=== PATIENT | female | born 1970 | race Caucasian/White ===

== ENCOUNTER 2018-11-12 06:32 | Day surgery (SDC) | payer OTHER ==
[2018-11-12] MEDS ORDERED: GLYCOPYRROLATE 0.4 MG INJ (07:00)
[2018-11-12] MEDS ORDERED: DESFLURANE 15 MIN (07:00)
[2018-11-12] MEDS ORDERED: CEFAZOLIN 2 GM/50 ML (PMX) 50 ML IVPB (07:00)
[2018-11-12] MEDS: SOD CHLORIDE 0.9% 1,000 ML IV (07:45)
[2018-11-12] MEDS ORDERED: hydrALAzine 20 MG INJ IV (09:00)
[2018-11-12] MEDS ORDERED: ALBUTEROL 0.083% (NEB) 2.5 MG/3 ML AMP HHN (09:00)
[2018-11-12] MEDS ORDERED: TRIMETHOBENZAMIDE 100 MG/ML VIAL IM (09:00)
[2018-11-12] MEDS ORDERED: HYDROmorphONE 1 MG/5 ML IV SYRINGE IV (09:00)
[2018-11-12] MEDS ORDERED: OXYCODONE/ACETAMINOPHEN (5/325) TAB PO (09:00)
[2018-11-12] MEDS ORDERED: LABETALOL HCL 20MG INJ IV (09:00)
[2018-11-12] MEDS ORDERED: MIDAZOLAM 1 MG/ML 2 ML INJ IV (09:00)
[2018-11-12] MEDS ORDERED: EPHEDrine SULFATE 50 MG/5 ML SYG IV (09:00)
[2018-11-12] MEDS ORDERED: FENTAnyl 50 MCG/ML VIAL IV ×2 (09:00)
[2018-11-12] MEDS ORDERED: DIPHENHYDRAMINE 50 MG INJ IV (09:00)
[2018-11-12] MEDS ORDERED: IPRATROPIUM (NEB) 0.5 MG/2.5 ML AMP HHN (09:00)
[2018-11-12] MEDS ORDERED: CEFAZOLIN 1 GM INJ (09:12)
[2018-11-12] MEDS ORDERED: NEOSTIGMINE 3 MG/3 ML SYRINGE (09:12)
[2018-11-12] MEDS ORDERED: ROCURONIUM 50 MG INJ (09:12)
[2018-11-12] MEDS ORDERED: PROPOFOL 20 ML (09:12)
[2018-11-12] MEDS ORDERED: MIDAZOLAM 1 MG/ML 2 ML INJ (09:13)
[2018-11-12] MEDS ORDERED: ONDANSETRON 4 MG INJ (09:13)
[2018-11-12] MEDS ORDERED: FENTAnyl 50 MCG/ML VIAL ×2 (09:13→09:36)
[2018-11-12] MEDS ORDERED: ROPIVACAINE 0.5 % 30 ML VIAL (09:19)
[2018-11-12] MEDS ORDERED: DEXAMETHASONE 4 MG/ML 5 ML INJ (09:50)
[2018-11-12] MEDS ORDERED: HYDROCODONE/APAP (5/325) TAB PO (10:00)
[2018-11-12] MEDS: ONDANSETRON 4 MG INJ IV (10:05)
[2018-11-12] MEDS: MEPERIDINE 25 MG INJ IV (10:05)
[2018-11-12] MEDS: HYDROmorphONE 1 MG/5 ML IV SYRINGE IV ×2 (10:13→10:18)
[2018-11-12] MEDS: FENTAnyl 50 MCG/ML VIAL IV ×2 (10:24→10:34)
[2018-11-12] MEDS: OXYCODONE/ACETAMINOPHEN (5/325) TAB PO (11:09)
== END 2018-11-12 11:40 | disposition home or self-care (01) ==
LOC: SDS 06:32
DX: K80.10 Calculus of gallbladder with chronic cholecystitis without obstruction (principal)
CPT/HCPCS: 47562; 88304

== ENCOUNTER 2019-02-27 06:24 | Day surgery (SDC) | payer OTHER ==
[2019-02-27] MEDS ORDERED: MIDAZOLAM 1 MG/ML 2 ML INJ ×3 (08:28→08:29)
[2019-02-27] MEDS ORDERED: FENTAnyl 50 MCG/ML VIAL (08:29)
== END 2019-02-27 14:33 | disposition home or self-care (01) ==
LOC: GIL 06:24
DX: K92.1 Melena (principal); K29.50 Unspecified chronic gastritis without bleeding; K64.8 Other hemorrhoids
CPT/HCPCS: 43239; 84703; 88305; 88312